=== PATIENT | female | born 1980 | race Caucasian/White ===

== ENCOUNTER 2017-06-04 20:21 | Inpatient (IN) | payer MEDICAID, OTHER, SELFPAY ==
[~2017-06-04] VITALS: Ht 167.6 cm; Wt 65.9 kg
[2017-06-04] MEDS ORDERED: ONDANSETRON 2MG/ML, 2ML IVPush ONE (20:30)
[2017-06-04] MEDS ORDERED: SODIUM CHLORIDE 0.9% 1,000ML IVBOLUS ONE ×2 (20:30→21:00)
[2017-06-04] MEDS ORDERED: SODIUM CHLORIDE FLUSH 10ML SYR IVF ONE (20:30)
[2017-06-04] MEDS ORDERED: PROMETHAZINE 25 MG/ML, 1ML IM ONE (21:00)
[2017-06-04] MEDS ORDERED: PLEASE ENTER ALLERGIES MC SCH ×2 (21:00)
[2017-06-04 21:04] LABS: HEMATOCRIT 46.6 % (34.6-47.8); HEMOGLOBIN 16.2 g/dL (11.7-16.4); WHITE BLOOD COUNT 8.8 x10^3/uL (3.4-10)
[2017-06-04 21:13] LABS: ASPARTATE AMINO TRANSFERASE 44 U/L (15-37); BLOOD UREA NITROGEN 18 mg/dL (7-18)
[2017-06-04 21:19] LABS: PH, VENOUS 7.426 pH (7.320-7.420)
[2017-06-04] MEDS ORDERED: LORazepam 2 MG/ML, 1ML IVPush ONE (21:30)
[2017-06-04] MEDS ORDERED: LORazepam 2 MG/ML, 1ML ONE (21:33)
[2017-06-04 21:36] LABS: IS PT STATUS REG ER OR PRE ER? YES
[2017-06-04 21:54] LABS: ACETAMINOPHEN < 2 mcg/mL (10-30)
[2017-06-04 22:40] LABS: DAU SCREEN DISCLAIMER
[2017-06-04] MEDS ORDERED: DEXTROSE 50%, 50ML VIAL ONE (23:03)
[2017-06-04] MEDS ORDERED: INSU100V13 SQ (23:24)
[2017-06-04] MEDS ORDERED: ONDA4TAB10 PO (23:25)
[2017-06-04] MEDS ORDERED: GABA300C PO (23:25)
[2017-06-04] MEDS ORDERED: LABETALOL 5MG/ML, 20ML IVPush PRN (23:30)
[2017-06-04] MEDS ORDERED: DEXTROSE 50%, 50ML SYRINGE IVPush ONE (23:30)
[2017-06-05] MEDS ORDERED: ONDANSETRON 2MG/ML, 2ML ONE (00:13)
[2017-06-05] MEDS ORDERED: ENOXAPARIN 40 MG/0.4 ML ONE (00:13)
[2017-06-05] MEDS: ENOXAPARIN 40 MG/0.4 ML SQ SCH (00:28)
[2017-06-05] MEDS: D5%-0.9% NACL 1,000 ML IV SCH ×2 (00:29→09:23)
[2017-06-05] MEDS ORDERED: MAALOX/HYOSCYAMINE/LIDOCAINE 45 ML BTL PO ONE (01:00)
[2017-06-05 01:33] VITALS: BP 119/81
[2017-06-05] MEDS: HYDROcodone/APAP 5/325 TABLET PO PRN ×2 (04:35→16:41)
[2017-06-05] MEDS: ONDANSETRON 2MG/ML, 2ML IVPush PRN ×2 (04:38→22:33)
[2017-06-05 05:18] LABS: HEMOGLOBIN 13.4 g/dL (11.7-16.4); WHITE BLOOD COUNT 10.8 x10^3/uL (3.4-10)
[2017-06-05 05:22] LABS: BLOOD UREA NITROGEN 15 mg/dL (7-18)
[2017-06-05 06:34] VITALS: BP 109/68
[2017-06-05] MEDS ORDERED: D5%-0.9% NACL 1,000 ML IV SCH (10:01)
[2017-06-05] MEDS ORDERED: DIAZEPAM 5 MG/ML, 2ML ONE (10:14)
[2017-06-05] MEDS ORDERED: DIAZEPAM 5 MG/ML, 10ML VIAL IV ONE (10:30)
[2017-06-05] MEDS ORDERED: D5%-0.45NACL+KCL 20MEQ 1,000 ML IV SCH (10:42)
[2017-06-05] MEDS ORDERED: POTASSIUM PHOSPHATE 22 MEQ in SODIUM CHLORIDE 0.9% 500 ML IV ONE (11:00)
[2017-06-05 15:22] VITALS: BP 124/74
[2017-06-05 18:31] VITALS: BP 100/68
[2017-06-05] MEDS: BENZOCAINE 20% SPRAY 0.5ML TP PRN (20:21)
[2017-06-05] MEDS: SODIUM CHLORIDE 0.9% 1,000 ML IV SCH (20:22)
[2017-06-05 22:24] VITALS: BP 113/71
[2017-06-06] MEDS: ENOXAPARIN 40 MG/0.4 ML SQ SCH ×2 (00:09→20:37)
[2017-06-06] MEDS ORDERED: DIAZEPAM 5 MG/ML, 2ML ONE (00:21)
[2017-06-06] MEDS ORDERED: DIAZEPAM 5 MG/ML, 10ML VIAL IV ONE (00:30)
[2017-06-06] MEDS ORDERED: INSULIN ASPART 100 UNITS/ML, PEN SQ-INSULIN SCH (00:30)
[2017-06-06 01:40] VITALS: BP 116/75
[2017-06-06] MEDS: SODIUM CHLORIDE 0.9% 1,000 ML IV SCH ×2 (03:48→20:36)
[2017-06-06 05:18] LABS: HEMATOCRIT 37.3 % (34.6-47.8); HEMOGLOBIN 12.7 g/dL (11.7-16.4); WHITE BLOOD COUNT 4.6 x10^3/uL (3.4-10)
[2017-06-06 05:46] LABS: ASPARTATE AMINO TRANSFERASE 22 U/L (15-37); BLOOD UREA NITROGEN 7 mg/dL (7-18)
[2017-06-06] MEDS: INSULIN ASPART 100 UNITS/ML, PEN SQ-INSULIN SCH ×5 (06:16→20:36)
[2017-06-06 08:26] VITALS: BP 118/84
[2017-06-06] MEDS: HYDROcodone/APAP 5/325 TABLET PO PRN (08:42)
[2017-06-06] MEDS ORDERED: POTASSIUM PHOSPHATE 44 MEQ in SODIUM CHLORIDE 0.9% 500 ML IV ONE (09:30)
[2017-06-06] MEDS: METOCLOPRAMIDE 5 MG/ML, 2ML IVPush PRN (10:11)
[2017-06-06 10:18] LABS: IS PT STATUS REG ER OR PRE ER? NO
[2017-06-06] MEDS: INSULIN DETEMIR 100 UNITS/ML, PEN SQ-INSULIN SCH ×2 (11:24→20:37)
[2017-06-06 13:38] VITALS: BP 117/82
[2017-06-06] MEDS: BENZOCAINE 20% SPRAY 0.5ML TP PRN (13:47)
[2017-06-06] MEDS ORDERED: OMNIPAQUE 350 MG/ML, 100ML BOTTLE ONE (17:16)
[2017-06-06] MEDS: GABAPENTIN 300 MG CAPSULE PO SCH ×2 (17:25→20:36)
[2017-06-06 21:19] VITALS: BP 100/67
[2017-06-07 03:10] VITALS: BP 117/79
[2017-06-07 04:39] LABS: BLOOD UREA NITROGEN 3 mg/dL (7-18)
[2017-06-07 04:43] LABS: ASPARTATE AMINO TRANSFERASE 44 U/L (15-37)
[2017-06-07] MEDS: GABAPENTIN 300 MG CAPSULE PO SCH ×2 (06:44→12:03)
[2017-06-07] MEDS: SODIUM CHLORIDE 0.9% 1,000 ML IV SCH (06:44)
[2017-06-07 07:02] VITALS: BP 111/77
[2017-06-07] MEDS: INSULIN ASPART 100 UNITS/ML, PEN SQ-INSULIN SCH ×2 (08:29→12:03)
[2017-06-07] MEDS: INSULIN DETEMIR 100 UNITS/ML, PEN SQ-INSULIN SCH (08:41)
[2017-06-07] MEDS: METOCLOPRAMIDE 5 MG/ML, 2ML IVPush PRN (10:26)
[2017-06-07 13:20] VITALS: BP 103/73
[2017-06-07] MEDS ORDERED: INSU100V13 SQ (13:54)
[2017-06-07] MEDS ORDERED: INSU100I18 SQ-INSULIN (13:54)
[2017-06-07] MEDS ORDERED: INSU100I28 SQ-INSULIN (13:54)
[2017-06-07] MEDS ORDERED: POTASSIUM CHLORIDE 20 MEQ TAB.ER.PRT PO SCH (17:00)
== END 2017-06-07 17:53 | disposition home or self-care (01) | DRG 74 ==
LOC: ED 22:30 → EDIP 22:38 → 5SO 06-05 01:30
PROVIDERS: ADMIT Family Medicine; ATTEND Family Medicine
DX: E11.43 Type 2 diabetes mellitus with diabetic autonomic (poly)neuropathy (principal); E87.2 Acidosis; E11.649 Type 2 diabetes mellitus with hypoglycemia without coma; E44.0 Moderate protein-calorie malnutrition; E86.0 Dehydration; E13.10 Other specified diabetes mellitus with ketoacidosis without coma; E11.42 Type 2 diabetes mellitus with diabetic polyneuropathy; E83.39 Other disorders of phosphorus metabolism; K31.84 Gastroparesis; R00.0 Tachycardia, unspecified; E87.6 Hypokalemia; J02.0 Streptococcal pharyngitis; Z79.4 Long term (current) use of insulin; Z83.3 Family history of diabetes mellitus; E11.65 Type 2 diabetes mellitus with hyperglycemia
CPT/HCPCS: 36415; 71010; 74177; 80048; 80053; 80076; 80307; 80329; 81001; 82010; 82803; 82962; 83036; 83690; 83735; 84100; 84484; 84703; 85025; 87081; 87880; 93005; 96361; 96374; 96375; C1760; J1650; J1815; J2405; J3360; J7042; Q9967; G0479; G0480; J2060; J2765; J3480; J7030; J7040